=== PATIENT | female | born 1955 | race Caucasian/White ===

== ENCOUNTER → 2020-07-26 | Outpatient (CLI) | payer MEDICARE ==
[~2020-07-26] VITALS: Ht 170.2 cm; Wt 65.3 kg
[~2020-07-26] MED LIST: LODINE CAP 300300 MG PO; VIBRAMYCIN100 MG PO
== END ==
LOC: OPSV 10:35
DX: M81.0 Age-related osteoporosis without current pathological fracture (principal)
CPT/HCPCS: 96365; J3489

== ENCOUNTER → 2020-12-22 | Outpatient (CLI) | payer MEDICARE | LOC: CT 11:25 | DX: R04.2 Hemoptysis (principal); J47.9 Bronchiectasis, uncomplicated; R91.8 Other nonspecific abnormal finding of lung field | CPT/HCPCS: Q9967 ==

== ENCOUNTER → 2021-11-28 | Outpatient (CLI) | payer MEDICARE ==
[~2021-11-28] VITALS: Ht 160 cm; Wt 68.5 kg
== END ==
LOC: OPSV 11-14 14:00
DX: M81.0 Age-related osteoporosis without current pathological fracture (principal)
CPT/HCPCS: 96365; J3489

== ENCOUNTER → 2021-12-17 | Outpatient (CLI) | payer MEDICARE | LOC: EROP 15:32 | DX: U07.1 COVID-19 (principal); Z23 Encounter for immunization | CPT/HCPCS: M0222; Q0222 ==